=== PATIENT | male | born 1965 | race Caucasian/White ===

== ENCOUNTER 2017-01-21 13:05 | Emergency (ER) | payer OTHER ==
[~2017-01-21] VITALS: Ht 175.3 cm; Wt 104.3 kg
[~2017-01-21 13:05] MED LIST: ADVIL200 MG PO; ATENOLOL25 M1 PO; ATIVAN0.5 MG PO; ATIVAN1 MG PO; BACTRIM DS 8001 TAB PO; BUSPAR5 MG PO; BUSPIRONE HCL7.5 MG PO; CEPHALEXIN500 MG PO; CLONAZEPAM1 MG PO; CYCLOBENZAPRINE10 M1 PO; FLEXERIL10 MG PO; FLUTICASON0.05 MG/A2 NAS; HARVONI1 TAB PO; HYDROCODONE/ACE1 TA1 PO; KEFLEX500 MG PO; LEVOTHROID0.125 MG PO; LEVOXYL150 MCG PO; MEDROL DOSEPAK1 PAC PO; MEDROL4 MG PO; METFORMIN HCL500 MG PO; MILK THISTLE200 M1 PO; MULTIVITAMIN1 TAB PO; NAPROSYN 500 M500 MG PO; NORFLEX100 MG PO; PANTOPRAZOLE SO40 M1 PO; PERCOCET 325 MG1 TA2 PO; PERCOCET 5-3251 EACH PO; PREDNICOT20 MG PO; PREVACID 30MG30 MG PO; PROAIR HFA8.5 GM INH; ROBITUSSIN W/CO10 ML PO; SIMVASTATIN10 MG PO; SUMATRIPTAN SUC25 MG; TERBINAFINE HY250 MG PO; TRAZODONE100 MG PO; ULTRACET 325 MG1 TAB PO; VENLAFAXINE HYD75 M1; VITAB121000 PO; ZITHROMAX Z-PA250 M1 PO; ZITHROMAX250 MG PO; ZOCOR40 M1 PO
[2017-01-21 13:15] VITALS: BP 121/79
[2017-01-21] MEDS ORDERED: METFORMIN HCL850 M1 PO (13:24)
[2017-01-21] MEDS ORDERED: ADVAIR 250-501 EACH INH (13:25)
[2017-01-21] MEDS ORDERED: IBUPROFEN800 M1 PO (13:27)
[2017-01-21] MEDS ORDERED: NEURONTIN300 M1 PO (13:27)
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
[2017-01-21] MEDS ORDERED: AMINO ACID1 EACH PO (13:29)
[2017-01-21] MEDS ORDERED: MEN 50 PLUS MU1 EACH PO (13:29)
[2017-01-21] MEDS ORDERED: HM VITAMIN B-10.4 MG PO (13:30)
[2017-01-21] MEDS ORDERED: NASONEX17 GM NASB (13:44)
[2017-01-21] MEDS ORDERED: AUGMENTIN 875-1 EACH PO (13:44)
== END 2017-01-21 13:45 ==
LOC: ERH 13:05
DX: J32.9 Chronic sinusitis, unspecified (principal)

== ENCOUNTER 2017-01-28 12:48 | Emergency (ER) | payer OTHER ==
[~2017-01-28] VITALS: Ht 175.3 cm; Wt 104.3 kg
[~2017-01-28 12:48] MED LIST changes: +ADVAIR 250-501 EACH INH; +AMINO ACID1 EACH PO; +AUGMENTIN 875-1 EACH PO; +HM VITAMIN B-10.4 MG PO; +IBUPROFEN800 M1 PO; +MEN 50 PLUS MU1 EACH PO; +METFORMIN HCL850 M1 PO; +NASONEX17 GM NASB; +NEURONTIN300 M1 PO
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
[2017-01-28 14:32] LABS: ABSOLUTE BASOPHIL COUNT 0.1 /CUMM (0.0-0.2); ABSOLUTE EOSINOPHIL COUNT 0.3 /CUMM (0.0-0.7); ABSOLUTE GRANULOCYTE CT 4.9 /CUMM (1.4-6.5); ABSOLUTE LYMPH COUNT 1.6 /CUMM (1.2-3.4); ABSOLUTE MONOCYTE COUNT 0.6 /CUMM (0.10-0.60); BASOPHIL % 0.8 % (0.0-2.0); EOSINOPHIL % 3.4 % (0-5); GRANULOCYTE % 65.5 % (42.2-75.2); HEMATOCRIT 35.5 % (42-52); MEAN CORPUSCULAR HGB 26.1 PG (27.0-31.0); MEAN CORPUSCULAR HGB CONC 32.7 G/DL (33.0-37.0); MEAN CORPUSCULAR VOLUME 79.8 FL (80.0-94.0); PLATELET COUNT 293 /CUMM (130-400); RBC DISTRIBUTION WIDTH 14.1 % (11.5-14.5); RED BLOOD CELL CT 4.45 /CUMM (4.70-6.10); WHITE BLOOD CELL COUNT 7.5 /CUMM (4.8-10.8)
--- NOTE | 2017-01-28 16:27 | CT SCAN REPORT ---
EXAMINATION: CT LUMBAR SPINE WITH CONTRAST CLINICAL INFORMATION: Fevers since lumbar puncture. Assess for lumbar abscess. COMPARISON: There are no prior studies available for comparison at time of dictation. TECHNIQUE: A noncontrast axial CT scan of the cervical spine was obtained. Coronal and sagittal reformatted images were generated at the acquisition workstation. 94 mL Optiray 320 intravenous contrast. DLP: 1061.63 mGy-cm FINDINGS: There is a mild retrolisthesis of L1 on L2 with narrowing of intervertebral disc height. There is narrowing of intervertebral disc height at L5-S1 as well, and both these discs have vacuum phenomena. There are degenerative endplate contour changes with sclerosis most prominently posteriorly at L5-S1. Vertebral body heights are maintained and there are no compression fractures. There are degenerative changes of the sacroiliac joints. The visualized retroperitoneal structures are unremarkable. There are no paraspinal or psoas fluid collections. The visualized pelvic structures are unremarkable. A compression screw is partially visualized in the right femoral neck and head. There are nonspecific areas of low attenuation in the iliac bones bilaterally. No epidural collections are demonstrated on the available images. There is no abnormal enhancement. SPINAL LEVELS: T12-L1: There is mild bilateral facet arthropathy. Disc contour appears normal. There is no central stenosis or foraminal narrowing. L1-L2: There is mild to moderate facet arthropathy with ligamenta flava hypertrophy and likely facet joint effusions. There is a broad-based posterior disc protrusion. The neural foramina are patent. There is mild central stenosis. L2-L3: There is mild to moderate facet arthropathy with ligamenta flava hypertrophy and facet joint effusions. There is a posterior disc protrusion extending into the inferior neural foramina bilaterally. There is mild central stenosis. L3-L4: There is moderate bilateral facet arthropathy with ligamenta flava hypertrophy and facet joint effusions. There is a left foraminal disc protrusion impinging on the exiting left L3 nerve root. The right neural foramen appears patent. There is moderate central stenosis. L4-L5: There is moderate bilateral facet arthropathy with ligamenta flava hypertrophy and facet joint effusions, end there is a broad-based posterior disc protrusion extending into the inferior left neural foramen likely far laterally with impingement on the extraforaminal left L4 nerve root. There is moderate central stenosis. L5-S1: There is moderate bilateral facet arthropathy. There is a broad-based posterior disc osteophyte complex extending into the right greater than left neural foramina with impingement on the exiting L5 nerve roots. There is no central stenosis. IMPRESSION: 1. No paravertebral or epidural collections are demonstrated. There is no abnormal enhancement. 2. There is multilevel spondylosis in the thoracolumbar spine, most prominent at L1-L2 and L5-S1. 3. There are left foraminal and far lateral disc protrusions at L3-L4 with impingement on the exiting left L3 and L4 nerve roots as described above.
[2017-01-28] MEDS ORDERED: FIORICET 50-301 EACH PO (16:31)
[2017-01-28 16:36] VITALS: BP 130/64
== END 2017-01-28 16:38 ==
LOC: ERH 12:48
PROVIDERS: Physician Assistant
DX: G97.1 Other reaction to spinal and lumbar puncture (principal); J32.9 Chronic sinusitis, unspecified; Z87.891 Personal history of nicotine dependence

== ENCOUNTER 2017-02-07 10:07 | Emergency (ER) | payer OTHER ==
[~2017-02-07] VITALS: Ht 175.3 cm; Wt 103.9 kg
[~2017-02-07 10:07] MED LIST changes: +FIORICET 50-301 EACH PO
[2017-02-07 10:11] VITALS: BP 122/84
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
[2017-02-07] MEDS ORDERED: PERCOCET 5-3251 EACH PO (10:59)
[2017-02-07] MEDS ORDERED: CYCLOBENZAPRINE10 M1 PO (10:59)
== END 2017-02-07 11:18 ==
LOC: ERH 10:07
DX: G89.29 Other chronic pain (principal); M54.5 Low back pain

== ENCOUNTER 2017-02-26 16:00 | Emergency (ER) | payer OTHER ==
[~2017-02-26] VITALS: Ht 175.3 cm; Wt 104.3 kg
[2017-02-26 16:49] VITALS: BP 120/86
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
[2017-02-26] MEDS ORDERED: CYCLOBENZAPRINE10 M1 PO (17:27)
[2017-02-26] MEDS ORDERED: PERCOCET 5-3251 EACH PO (17:27)
== END 2017-02-26 17:47 ==
LOC: ERH 16:00
DX: M54.5 Low back pain (principal)

== ENCOUNTER 2017-03-04 11:59 | Emergency (ER) | payer OTHER ==
[~2017-03-04] VITALS: Ht 175.3 cm; Wt 104.3 kg
[2017-03-04 12:02] VITALS: BP 146/84
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
[2017-03-04] MEDS ORDERED: VIBRAMYCIN100 MG PO (12:27)
[2017-03-04] MEDS ORDERED: PREDNISONE20 M1 PO (12:28)
== END 2017-03-04 12:31 ==
LOC: ERH 11:59
DX: L25.9 Unspecified contact dermatitis, unspecified cause (principal); M54.5 Low back pain

== ENCOUNTER 2017-03-10 12:32 | Emergency (ER) | payer OTHER ==
[~2017-03-10] VITALS: Ht 175.3 cm; Wt 102.1 kg
[~2017-03-10 12:32] MED LIST changes: +PREDNISONE20 M1 PO; +VIBRAMYCIN100 MG PO
[2017-03-10] MEDS ORDERED: HYDROCORTISO453.6 G2 TOP (14:02)
[2017-03-10] MEDS ORDERED: CLEOCIN HCL300 M1 PO (14:02)
[2017-03-10] MEDS ORDERED: PERCOCET 5-3251 EACH PO (14:02)
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
[2017-03-10 14:05] VITALS: BP 130/80
== END 2017-03-10 14:05 ==
LOC: ERH 12:32
DX: R21 Rash and other nonspecific skin eruption (principal); M54.9 Dorsalgia, unspecified

== ENCOUNTER 2017-03-25 16:05 | Emergency (ER) | payer OTHER ==
[~2017-03-25] VITALS: Ht 175.3 cm; Wt 99.8 kg
[~2017-03-25 16:05] MED LIST changes: +CLEOCIN HCL300 M1 PO; +HYDROCORTISO453.6 G2 TOP
[2017-03-25 16:11] VITALS: BP 161/91
[2017-03-25] MEDS ORDERED: PERCOCET 5-3251 EACH PO (18:17)
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
== END 2017-03-25 18:37 ==
LOC: ERH 16:05
DX: M54.5 Low back pain (principal); L55.0 Sunburn of first degree

== ENCOUNTER 2017-04-02 16:26 | Emergency (ER) | payer OTHER ==
[~2017-04-02] VITALS: Ht 175.3 cm; Wt 102.1 kg
[2017-04-02 16:41] VITALS: BP 147/92
[2017-04-02] MEDS ORDERED: PERCOCET 5-3251 EACH PO (18:15)
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
== END 2017-04-02 18:27 ==
LOC: ERH 16:26
DX: M54.5 Low back pain (principal)

== ENCOUNTER 2017-10-17 10:05 | Emergency (ER) | payer OTHER ==
[~2017-10-17 10:05] MED LIST changes: +ATIVAN1 M1 PO; +CHLORDIAZEPOXID25 M3 PO; +FLONASE ALLERG9.9 ML NASB; +LISINOPRIL10 M1 PO; -MILK THISTLE200 M1 PO; +MILK THISTLE500 M1 PO; +TRAZODONE HCL50 M1 PO; +VITAMIN B-121000 MC3 PO; +ZOFRAN ODT4 M1 SL
== END 2017-10-17 10:34 | disposition admitted as inpatient to this hospital (09) ==
LOC: ERH 10:05
DX: R09.89 Other specified symptoms and signs involving the circulatory and respiratory systems (principal)